=== PATIENT | female | born 1990 | race Caucasian/White ===

== ENCOUNTER → 2023-04-23 13:08 | Outpatient (CLI) | payer OTHER, SELFPAY ==
--- NOTE | 2023-04-23 13:13 | DI.RAD.S_ITS ---
PROCEDURE: XR LUMBAR SPINE 2-3V INDICATIONS: vertebral fracture, left patella fracture TECHNIQUE: 3 views of the lumbar spine were acquired. COMPARISON: None. FINDINGS: Bones: 5 [id number] vertebrae are present. There is normal bony alignment. No vertebral body compression fractures. No suspicious bony lesions. Soft tissues: Overlying bowel gas pattern is normal. No suspicious soft tissue calcifications. IMPRESSION: No acute bony abnormality. No acute or chronic compression fracture noted. Dictated by: Jac Medina M.D. on 04/23/2023 at 14:23 Approved by: Jac Medina M.D. on 04/23/2023 at 14:24
--- NOTE | 2023-04-23 13:13 | DI.RAD.S_ITS ---
PROCEDURE: XR THORACIC SPINE 2V INDICATIONS: vertebral fracture, left patella fracture TECHNIQUE: 3 views of the thoracic spine were acquired. COMPARISON: None. FINDINGS: Bones: There is a mild to moderate T7 compression fracture of uncertain chronicity, possibly acute or subacute. There is a very subtle superior endplate compression fracture of T6. It is also age indeterminate. The bones are diffusely osteopenic. Soft tissues: No paravertebral stripe thickening. IMPRESSION: Age indeterminate compression fractures of T6 and T7. Comment: Consider thoracic spine MRI for further evaluation, to identify fracture acuity. Dictated by: Jac Medina M.D. on 04/23/2023 at 14:24 Approved by: Jac Medina M.D. on 04/23/2023 at 14:26
--- NOTE | 2023-04-23 13:13 | DI.RAD.S_ITS ---
PROCEDURE: XR KNEE LT 3V INDICATIONS: vertebral fracture, left patella fracture TECHNIQUE: 3 views of the knee were acquired. COMPARISON: None. FINDINGS: Bones: No fractures or dislocations. No suspicious bony lesions. Soft tissues: No joint effusion. No suspicious soft tissue calcifications. IMPRESSION: No acute bony abnormality identified. No patellar fracture seen. Dictated by: Jac Medina M.D. on 04/23/2023 at 14:23 Approved by: Jac Medina M.D. on 04/23/2023 at 14:23
== END ==
PROVIDERS: Referring Provider Chiropractor; Visit Provider Chiropractor
DX: S22.059A Unspecified fracture of T5-T6 vertebra, initial encounter for closed fracture (principal); S22.069A Unspecified fracture of T7-T8 vertebra, initial encounter for closed fracture; S82.002A Unspecified fracture of left patella, initial encounter for closed fracture; S32.009A Unspecified fracture of unspecified lumbar vertebra, initial encounter for closed fracture; X58.XXXA Exposure to other specified factors, initial encounter
CPT/HCPCS: 72070; 72100; 73562

== ENCOUNTER 2023-09-28 17:18 | Emergency (ER) | payer OTHER, SELFPAY ==
[2023-09-28 17:25] VITALS: BP 138/75; PULSE 88; RESP 16; TEMP 36.6; O2SAT 96; BMI 36.6
--- NOTE | 2023-09-28 17:51 | ED_ITS ---
HPI - URI/Sore Throat <LUIGI Spence Last Filed: 09/29/23 09:07> General Chief Complaint: Upper Respiratory Symptoms Stated Complaint: per pt poss. Pinkeye, cough, diarrhea Time Seen by Provider: 09/28/23 17:31 Source: patient Mode of arrival: Ambulatory History of Present Illness HPI Narrative: This is a 33-year-old female presents emergency department due to URI symptoms for the last week. States that her daughter tested positive for coronavirus 2 weeks ago but is requesting ?full testing?. She reports some dull aching chest pain affecting her right rib area onset earlier today. Reports some tactile fevers. Reports rhinorrhea, productive cough. Also complaining of ?right eye pink eye?. Related Data Allergies Allergy/AdvReac Type Severity Reaction Status Date / Time azithromycin Allergy Unknown Verified 09/28/23 17:35 Review of Systems <LUIGI Spence Last Filed: 09/29/23 09:07> Review of Systems Narrative: GENERAL: Reports tactile fevers Denies chills, fatigue, malaise, , sweats. HEENT: Reports right eye irritation, Denies sinus pain, ear pain, sore throat, difficulty swallowing, dizziness. RESPIRATORY: Reports productive cough, Denies dyspnea, , wheezing, hemoptysis, . CARDIOVASCULAR: Reports chest pain, denies palpitations, orthopnea, edema, GASTROINTESTINAL: Denies nausea, vomiting, abdominal pain, diarrhea, constipation, melena. : Denies dysuria, frequency, incontinence, hematuria, urinary retention. MUSCULOSKELETAL: denies weakness, joint pain, or bony pain SKIN: Denies rash, skin lesions, or other NEUROLOGIC: Denies weakness, headache, numbness, change in speech, confusion, s eizures, incoordination. PSYCHIATRIC: No concerning psychosocial issues. 12 point review of systems is negative except for those stated above Patient History <LUIGI Spence Last Filed: 09/29/23 09:07> Social History Smoking Status: Former smoker Smoking Status: Former smoker alcohol intake frequency: 0-2 drinks per day Substance Use Type: marijuana Exam <LUIGI Spence Last Filed: 09/29/23 09:07> Narrative Exam Narrative: GENERAL: Well-developed patient, in mild distress. HEAD: Atraumatic. Normocephalic. EYES: Right conjunctiva erythematous. Pupils equal round and reactive. Extraocular motions intact. ENT: Nose without bleeding, purulent drainage. Throat without erythema, tonsillar hypertrophy or exudate. Airway patent. NECK: Trachea midline. Non tender EXTREMITIES: No edema or joint tenderness. NEURO: AOx3. SKIN: No rash or erythema of visible areas CARDIOVASCULAR: Regular rate and rhythm without murmurs, gallops, or rubs. RESPIRATORY: Clear to auscultation. Breath sounds equal bilaterally. No wheezes, rales, or rhonchi. GASTROINTESTINAL: Abdomen soft, non-tender, nondistended. BACK: Nontender without deformity or crepitance. No flank tenderness. Initial Vital Signs Initial Vital Signs: Vital Signs Temperature 97.9 F 09/28/23 17:25 Pulse Rate 88 09/28/23 17:25 Respiratory Rate 16 09/28/23 17:25 Blood Pressure 138/75 09/28/23 17:25 Pulse Oximetry 96 09/28/23 17:25 Oxygen Delivery Method Room Air 09/28/23 17:25 <Joslyn Heaton DO - Last Filed: 10/04/23 07:21> Initial Vital Signs Initial Vital Signs: Vital Signs Temperature 97.9 F 09/28/23 17:25 Pulse Rate 88 09/28/23 17:25 Respiratory Rate 16 09/28/23 17:25 Blood Pressure 138/75 09/28/23 17:25 Pulse Oximetry 96 09/28/23 17:25 Oxygen Delivery Method Room Air 09/28/23 17:25 Course <Roberto Adames PA-C - Last Filed: 09/29/23 09:07> Orders Ordered: ED Orders 09/28/23 18:02 XR chest 2V Stat 09/28/23 18:06 Respiratory Panel (Film Array) Stat Vital Signs Vital signs: Vital Signs - 8 hr 09/28/23 17:25 Temperature 97.9 F Pulse Rate 88 Respiratory Rate 16 Blood Pressure 138/75 Pulse Oximetry 96 Oxygen Delivery Method Room Air <DO Lina Virgen Last Filed: 10/04/23 07:21> Orders Ordered: ED Orders 09/28/23 18:02 XR chest 2V Stat 09/28/23 18:06 Respiratory Panel (Film Array) Stat Vital Signs Vital signs: Vital Signs - 8 hr 09/28/23 17:25 Temperature 97.9 F Pulse Rate 88 Respiratory Rate 16 Blood Pressure 138/75 Pulse Oximetry 96 Oxygen Delivery Method Room Air MDM - URI/Sore Throat <Roberto Adames PA-C - Last Filed: 09/29/23 09:07> Lab Data Labs: Lab Results 09/28/23 Range/Units 18:06 Chlamy pneumoniae PCR Not detected (Not Detect) Adenovirus (PCR) Not detected (Not Detect) B.parapertussis DNA PCR Not detected (Not Detecte) Coronavirus OC43 (PCR) Not detected (Not Detect) Coronavirus HKU1 (PCR) Not detected (Not Detect) Coronavirus 229E (PCR) Not detected (Not Detect) SARS-CoV-2 (PCR) Not detected (Not Detecte) Coronavirus NL63 (PCR) Not detected (Not Detect) Human Metapneumovir PCR Not detected (Not Detect) Influenza Type A (PCR) Not detected (Not Detect) Influenza Type B (PCR) Not detected (Not Detect) M. pneumoniae (PCR) Not detected (Not Detect) Parainfluenza 1 (PCR) Not detected (Not Detect) Parainfluenza 2 (PCR) Not detected (Not Detect) Parainfluenza 3 (PCR) Not detected (Not Detect) Parainfluenza 4 (PCR) Not detected (Not Detect) RSV (PCR) Not detected (Not Detect) Entero/Rhino (PCR) Not detected (Not Detect) Imaging Data Chest x-ray: Radiologist's Impression: [place] [address] XRay Report Signed Patient: Sarah Drummond MR#: [id number] : 1990 Acct:[id number] Age/Sex: 33 / F Date of Service: 09/28/23 Loc: ED Accession Number: [id number] Procedure: XR chest 2V Ordering Provider: Roberto Adames P.A-C PROCEDURE: XR CHEST 2V INDICATIONS: R sided CP and cough TECHNIQUE: 2 views of the chest were acquired. COMPARISON: None. FINDINGS: Surgical changes and devices: None. Lungs and pleura: Lungs are clear. No pleural effusions or pneumothorax. Mediastinum: Mediastinal contours are normal. Heart size is normal. Bones and chest wall: No suspicious bony abnormalities. Soft tissues appear unremarkable. IMPRESSION: Normal two view chest x-ray Approved by: Marky Bravo M.D. on 09/28/2023 at 17:30 MDM Narrative Medical decision making narrative: ED course: This is a 33-year-old female presents to the emergency department due to 7 days of URI symptoms. Also presenting with possible bacterial conjunctivitis, antibiotic eyedrops were prescribed. Respiratory panel came back negative. Suspect some other kind of a viral URI. Chest x-ray negative. Recommended supportive care. CC: Cough Complicating co-morbidities: None Data collected from: Previous notes Medical records reviewed: Patient was not been to this emergency department in the past. No other medical records to review. Differential considered, but not limited to: COVID, influenza, viral URI Exam documented above, pertinent findings include: Erythematous of the right eye conjunctiva, otherwise unremarkable Lab Test results independently reviewed as above. Pertinent findings: Respiratory panel negative Imaging studies independently reviewed: Chest x-ray negative Scores Used: None MIPS Elements: None Consultations: None Treatments: None Re-evaluations: None Discussion: Discussed plan with the patient was comfortable with the plan Diagnosis: Viral URI Disposition: see below, along with detailed discharge instructions that have been reviewed with patient as well as indications for ED re-evaluation and additional outpatient follow up <Joslyn Heaton, - Last Filed: 10/04/23 07:21> Lab Data Labs: Lab Results 09/28/23 Range/Units 18:06 Chlamy pneumoniae PCR Not detected (Not Detect) Adenovirus (PCR) Not detected (Not Detect) B.parapertussis DNA PCR Not detected (Not Detecte) Coronavirus OC43 (PCR) Not detected (Not Detect) Coronavirus HKU1 (PCR) Not detected (Not Detect) Coronavirus 229E (PCR) Not detected (Not Detect) SARS-CoV-2 (PCR) Not detected (Not Detecte) Coronavirus NL63 (PCR) Not detected (Not Detect) Human Metapneumovir PCR Not detected (Not Detect) Influenza Type A (PCR) Not detected (Not Detect) Influenza Type B (PCR) Not detected (Not Detect) M. pneumoniae (PCR) Not detected (Not Detect) Parainfluenza 1 (PCR) Not detected (Not Detect) Parainfluenza 2 (PCR) Not detected (Not Detect) Parainfluenza 3 (PCR) Not detected (Not Detect) Parainfluenza 4 (PCR) Not detected (Not Detect) RSV (PCR) Not detected (Not Detect) Entero/Rhino (PCR) Not detected (Not Detect) Discharge Plan Departure Patient Disposition: Home Clinical Impression: Acute bacterial conjunctivitis Activity Restrictions/Additional Instructions: Thank you for coming to the [facility] Emergency Department today. As we discussed the chest x-ray came back normal. Negative for pneumonia. I will call you with the respiratory panel and screening results when they are available. I sent your medication to [facility] in [place]. Please return to the emergency department if you develop any new or worsening chest pain, shortness of breath, or any other concerning signs or symptoms. I hope you feel better soon. Please follow up with your primary care provider within a week if your symptoms continue. If you do not have a primary care provider please contact the [facility] Resource line at [phone]. They will ask some questions about your medical history and help you get set up with a provider in the community. Stand Alone Forms: Patient Portal/API ED Sign-out <Joslyn Heaton, - Last Filed: 10/04/23 07:21> Cosign ED Attending Alex Attestation: I was available for consultation.
--- NOTE | 2023-09-28 18:02 | DI.RAD.S_ITS ---
PROCEDURE: XR CHEST 2V INDICATIONS: R sided CP and cough TECHNIQUE: 2 views of the chest were acquired. COMPARISON: None. FINDINGS: Surgical changes and devices: None. Lungs and pleura: Lungs are clear. No pleural effusions or pneumothorax. Mediastinum: Mediastinal contours are normal. Heart size is normal. Bones and chest wall: No suspicious bony abnormalities. Soft tissues appear unremarkable. IMPRESSION: Normal two view chest x-ray Approved by: Marky Bravo M.D. on 09/28/2023 at 17:30
[2023-09-28 19:01] LABS: Adenovirus Not Detected (Not Detect); B. parapertussis Not Detected (Not Detecte); Bordetella pertussis Not Detected (Not Detect); Chlamydophila pneumoniae Not Detected (Not Detect); Coronavirus 229E Not Detected (Not Detect); Coronavirus HKU1 Not Detected (Not Detect); Coronavirus NL 63 Not Detected (Not Detect); Coronavirus OC43 Not Detected (Not Detect); Human Metapneumovirus Not Detected (Not Detect); Human Rhinovirus/Enterovirus Not Detected (Not Detect); Influenza A Not Detected (Not Detect); Influenza B Not Detected (Not Detect); Mycoplasma pneumoniae Not Detected (Not Detect); Parainfluenza Virus 1 Not Detected (Not Detect); Parainfluenza Virus 2 Not Detected (Not Detect); Parainfluenza Virus 3 Not Detected (Not Detect); Parainfluenza Virus 4 Not Detected (Not Detect); Respiratory Syncytial Virus Not Detected (Not Detect); SARS- CoV-2 Not Detected (Not Detecte)
== END 2023-09-28 19:14 | disposition home or self-care (01) ==
PROVIDERS: Emergency Provider Physician Assistant Medical
DX: H10.31 Unspecified acute conjunctivitis, right eye (principal); R07.9 Chest pain, unspecified
CPT/HCPCS: 71046; 87633; 99283

== ENCOUNTER 2023-11-11 11:21 | Emergency (ER) | payer OTHER, SELFPAY ==
[2023-11-11 11:53] VITALS: BP 128/74; PULSE 80; RESP 17; TEMP 36.1; O2SAT 100; BMI 36.3
[2023-11-11] MEDS: KETOROLAC 30 MG/ML VIAL IM (13:50)
--- NOTE | 2023-11-11 13:50 | ED_ITS ---
HPI - Abdominal Pain <Margarita Rosen PA-C - Last Filed: 11/11/23 13:55> General Chief Complaint: Abdominal Pain Stated Complaint: Pt says she might have a hernia Time Seen by Provider: 11/11/23 12:53 Source: patient Mode of arrival: Ambulatory History of Present Illness HPI narrative: 33-year-old female presents to the ED with left-sided abdominal pain for 3 days. Patient states that 3 days ago, she was straining with her arms and torso as she was applying wrote to her shower. Patient states that it took a tremendous amount of effort and that she could have pulled a muscle on her left side. Patient states that the pain is aggravated with movement, coughing. Patient denies fever, chills, chest pain, shortness of breath, nausea, vomiting, dysuria. Patient reports normal bowel movements. Patient does endorse some recent constipation. Related Data Previous Rx's Medication Instructions Recorded cyclobenzaprine 10 mg tablet 10 mg PO TID PRN muscle spasm #14 11/11/23 tabs Allergies Allergy/AdvReac Type Severity Reaction Status Date / Time azithromycin AdvReac Unknown Rash Verified 11/11/23 11:53 Review of Systems <Margarita Rosen PA-C - Last Filed: 11/11/23 13:55> Constitutional Constitutional: Denies chills, Denies fatigue, Denies fever(s), Denies frequent falls, Denies lethargy and Denies weakness Eyes Eyes: Denies change in vision, Denies eye discharge, Denies irritation and Denies loss of vision ENT Ears, Nose, Mouth, and Throat: Denies change in voice, Denies dizziness, Denies neck pain, Denies sore throat and Denies throat swelling Cardiovascular Cardiovascular: Denies chest pain, Denies irregular heart rhythm, Denies lightheadedness, Denies palpitations, Denies dyspnea, Denies dyspnea on exertion and Denies orthopnea Respiratory Respiratory: Denies cough, Denies dyspnea, Denies dyspnea on exertion and Denies wheezing Gastrointestinal Gastrointestinal: Reports abdominal pain, Denies change in bowel habits, Denies diarrhea, Denies nausea and Denies vomiting Musculoskeletal Musculoskeletal: Denies neck pain and Denies numbness Integumentary/Breasts Skin/Breast: Denies pruritus, Denies erythema, Denies rash and Denies wounds Neurologic Neurologic: Denies behavioral changes, Denies confusion, Denies dizziness, Denies frequent falls, Denies loss of vision, Denies numbness and Denies weakness Psychiatric Psychiatric: Denies anxiety, Denies behavioral changes, Denies confusion, Denies depression, Denies homicidal ideation and Denies suicidal ideation Endocrine Endocrine: Denies fatigue, Denies flushing and Denies palpitations Hematologic/Lymphatic Hematologic/Lymphatic: Denies easy bruising Allergic/Immunologic Allergic/Immunologic: Denies urticaria, Denies throat swelling and Denies wheezing Patient History <Margarita Rosen PA-C - Last Filed: 11/11/23 13:55> Social History Smoking Status: Former smoker Smoking Status: Former smoker alcohol intake frequency: 0-2 drinks per day Substance Use Type: marijuana Exam <Margarita Rosen PA-C - Last Filed: 11/11/23 13:55> Narrative Exam Narrative: Const General:?cooperative, healthy appearing and comfortable HENMT Head:?normal to inspection Ears:?hearing grossly normal bilaterally Nose:?external nose normal Face and sinus:?normal facial exam and sinuses nontender Mouth:?oral mucosae normal Throat:?posterior oropharynx normal Eyes General:?appearance normal, both eyes and all related structures Neck Neck:?normal visual inspection and no lymphadenopathy noted Resp Effort & Inspection:?normal respiratory effort Auscultation:?clear to auscultation bilaterally Cardio Rate:?regular rate Rhythm:?regular rhythm GI Abdomen is soft, nondistended. There is mild, generalized tenderness to palpat ion. No CVA tenderness. Neuro General:?patient alert, patient awake and patient oriented x3 Initial Vital Signs Initial Vital Signs: Vital Signs Temperature 97.0 F L 11/11/23 11:53 Pulse Rate 80 11/11/23 11:53 Respiratory Rate 17 11/11/23 11:53 Blood Pressure 128/74 11/11/23 11:53 Pulse Oximetry 100 11/11/23 11:53 Oxygen Delivery Method Room Air 11/11/23 11:53 <Bertha Castro MD - Last Filed: 11/11/23 14:39> Initial Vital Signs Initial Vital Signs: Vital Signs Temperature 97.0 F L 11/11/23 11:53 Pulse Rate 80 11/11/23 11:53 Respiratory Rate 17 11/11/23 11:53 Blood Pressure 128/74 11/11/23 11:53 Pulse Oximetry 100 11/11/23 11:53 Oxygen Delivery Method Room Air 11/11/23 11:53 Course <Margarita Rosen PA-C - Last Filed: 11/11/23 13:55> Orders Ordered: Discontinued Medications Ketorolac Tromethamine (Ketorolac 30 Mg/Ml Vial) 30 mg IM NOW ONE Stop: 11/11/23 13:39 Last Admin: 11/11/23 13:50 Dose: 30 mg Documented By: RAGHU Vital Signs Vital signs: Vital Signs - 8 hr 11/11/23 11:53 11/11/23 13:59 Temperature 97.0 F L Pulse Rate 80 77 Respiratory Rate 17 17 Blood Pressure 128/74 128/70 Pulse Oximetry 100 100 Oxygen Delivery Method Room Air Room Air <Bertha Castro MD - Last Filed: 11/11/23 14:39> Orders Ordered: Discontinued Medications Ketorolac Tromethamine (Ketorolac 30 Mg/Ml Vial) 30 mg IM NOW ONE Stop: 11/11/23 13:39 Last Admin: 11/11/23 13:50 Dose: 30 mg Documented By: RAGHU Vital Signs Vital signs: Vital Signs - 8 hr 11/11/23 11:53 11/11/23 13:59 Temperature 97.0 F L Pulse Rate 80 77 Respiratory Rate 17 17 Blood Pressure 128/74 128/70 Pulse Oximetry 100 100 Oxygen Delivery Method Room Air Room Air MDM - Abdominal Pain <Margarita Rosen PA-C - Last Filed: 11/11/23 13:55> MDM Narrative Medical decision making narrative: 33-year-old female presents to the ED with left-sided abdominal pain for 3 days. There is some mild tenderness to palpation in the abdomen which is generalized. Concern for musculoskeletal sprain/strain versus intra-abdominal pathology versus other. History is most consistent with a musculoskeletal etiology. Discussed the options of and abdominal workup with imaging versus trialing Toradol and Flexeril. Patient states that given that she is time constraints in picking up her kids, she will try the Toradol and Flexeril, monitor the abdominal symptoms and return to the ED if she has worsening symptoms. ED return precautions were discussed in detail with patient. She verbalized understanding. Medical records reviewed: Yes Discharge Plan Departure Patient Disposition: Home Clinical Impression: Abdominal pain Instructions: DI for Abdominal Muscle Strain Activity Restrictions/Additional Instructions: You were evaluated in the ED today for left-sided abdominal pain. Your symptoms are most consistent with a abdominal muscle strain. You were given a shot of Toradol in the ED and are being prescribed a muscle relaxant Flexeril to take at home. You may also continue to take 600 mg of ibuprofen with food for pain. Please monitor your symptoms and return to the ED if you have worsening symptoms. Prescriptions: New cyclobenzaprine 10 mg tablet 10 mg PO TID PRN (Reason: muscle spasm) Qty: 14 0RF Referrals: Provider,De PEDERSEN [Primary Care Provider] - Stand Alone Forms: Patient Portal/API ED Sign-out <Bertha Castro MD - Last Filed: 11/11/23 14:39> Cosign ED Attending Alex Attestation: I was immediately available in the department for consultation throughout this patient's visit. Bertha Castro MD
[2023-11-11 13:59] VITALS: BP 128/70; PULSE 77; RESP 17; O2SAT 100
== END 2023-11-11 14:01 | disposition home or self-care (01) ==
PROVIDERS: Emergency Provider Student in an Organized Health Care Education/Training Program
DX: R10.84 Generalized abdominal pain (principal)
CPT/HCPCS: 96372; 99283; J1885

== ENCOUNTER 2024-05-26 18:51 | Emergency (ER) | payer OTHER, SELFPAY ==
[2024-05-26 18:55] VITALS: BP 122/81; PULSE 105; RESP 16; TEMP 37.2; O2SAT 95; BMI 36.8
[2024-05-26 19:37] LABS: Strep Grp A by PCR Rapid Negative (Negative)
--- NOTE | 2024-05-26 20:23 | ED.URI ---
HPI - URI/Sore Throat General Chief Complaint: Upper Respiratory Symptoms Stated Complaint: throat pain Time Seen by Provider: 05/26/24 19:29 Source: patient Mode of arrival: Ambulatory History of Present Illness HPI Narrative: 33-year-old female with no significant past medical history presents with 3 days of sore throat, intermittent nonproductive cough. Has been using [id number] cough and cold medications without significant relief. Reports pain with swallowing and swollen tonsils. Denies fevers. Related Data Previous Rx's Medication Instructions Recorded cyclobenzaprine 10 mg tablet 10 mg PO TID PRN muscle spasm #14 11/11/23 tabs dexamethasone 4 mg tablet 8 mg (2 x 4 mg) PO .once #2 tabs 05/26/24 lidocaine HCl 2 % mucosal solution 1 applic mucous membrane BID PRN 05/26/24 (Lidocaine Viscous) pain #100 mL Allergies Allergy/AdvReac Type Severity Reaction Status Date / Time azithromycin AdvReac Unknown Rash Verified 11/11/23 11:53 Patient History Social History Smoking Status: Former smoker Smoking Status: Former smoker alcohol intake frequency: 0-2 drinks per day Substance Use Type: marijuana Exam Initial Vital Signs Initial Vital Signs: Vital Signs Temperature 98.9 F 05/26/24 18:55 Pulse Rate 105 H 05/26/24 18:55 Respiratory Rate 16 05/26/24 18:55 Blood Pressure 122/81 05/26/24 18:55 Pulse Oximetry 95 05/26/24 18:55 Oxygen Delivery Method Room Air 05/26/24 18:55 Const: Awake, alert, no acute distress, nontoxic appearing HEENT: Ears normal, nose normal, 4+ tonsillar swelling, minimal erythema, no abscess, airway patent, mucous membranes moist Skin: Warm, Dry, intact, no rashes Neuro: AO x3, CN II-XII grossly intact, moves all extremities Course Orders Ordered: Discontinued Medications Dexamethasone (Dexamethasone 10 Mg/Ml Vial) 10 mg PO NOW ONE Stop: 05/26/24 20:23 Last Admin: 05/26/24 20:29 Dose: 10 mg Documented By: LEONCIO Vital Signs Vital signs: Vital Signs - 8 hr 05/26/24 18:55 Temperature 98.9 F Pulse Rate 105 H Respiratory Rate 16 Blood Pressure 122/81 Pulse Oximetry 95 Oxygen Delivery Method Room Air MDM - URI/Sore Throat Differential Diagnosis Differential diagnosis: Likely upper respiratory infection, sinusitis and viral infection Lab Data Labs: Lab Results 05/26/24 Range/Units 18:50 Group A Strep (PCR) Negative (Negative) MDM Narrative Medical decision making narrative: Likely viral pharyngitis. Strep swab negative. There is tonsillar swelling present, however airway is patent, voices normal, tolerating secretions, no distress. Patient given Decadron for symptoms. Counseled use of Tylenol and ibuprofen, saltwater gargles, honey and tea for comfort. Additional dose of Decadron given if patient continues to have tonsillar swelling in the next several days. Discharge Plan Departure Patient Disposition: Home Clinical Impression: Pharyngitis Instructions: DI for Pharyngitis/Tonsillopharyngitis -- Adult Activity Restrictions/Additional Instructions: Your strep swab is negative. It has been sent for culture. If you do end up needing antibiotics someone will call and prescribe this for you, however your tonsils appearance seem more consistent with a viral illness. Take Tylenol and ibuprofen for pain. Use saltwater gargles as needed for throat comfort. Tea with honey is also soothing for the throat. Prescriptions: New dexamethasone 4 mg tablet 8 mg PO .once Qty: 2 0RF Rx Instructions: can take on 05/28/24 if still experiencing tonsillar swelling lidocaine HCl [Lidocaine Viscous] 2 % solution 1 applic mucous membrane BID PRN (Reason: pain) Qty: 100 0RF No Action cyclobenzaprine 10 mg tablet 10 mg PO TID PRN (Reason: muscle spasm) Qty: 14 0RF Referrals: ProviderDe [Primary Care Provider] - Stand Alone Forms: Patient Portal/API/Survey
[2024-05-26] MEDS: DEXAMETHASONE 10 MG/ML VIAL PO (20:29)
[2024-05-26 20:32] VITALS: BP 134/69; PULSE 91; RESP 21; TEMP 37.1; O2SAT 98
== END 2024-05-26 20:32 | disposition home or self-care (01) ==
PROVIDERS: Emergency Provider Emergency Medicine
DX: J02.9 Acute pharyngitis, unspecified (principal)
CPT/HCPCS: 87651; 99283; J1100

== ENCOUNTER 2024-11-23 09:17 | Emergency (ER) | payer OTHER, SELFPAY ==
[2024-11-23] VITALS (10 sets, daily range): BP systolic 124–138; BP diastolic 82–90; PULSE 67–83; O2SAT 97–99
[2024-11-23 12:19] LABS: Alanine Aminotransferase 27 IU/L (<35); Albumin 3.9 g/dL (3.5-5.0); Albumin Globulin Ratio 1.3 (1.0-2.8); Alkaline Phosphatase 56 U/L (38-126); Aspartate Aminotransferase 29 IU/L (14-36); BUN Creatinine Ratio 17.9 (6-22); Bilirubin Total 0.5 mg/dL (0.2-1.3); Blood Urea Nitrogen 12 mg/dL (7-17); Calcium 8.8 mg/dL (8.4-10.2); Carbon Dioxide 22 mmol/L (22-32); Chloride 106 mmol/L (98-107); Estimated Glomerular Filt Rate > 60 mL/min (>60); Glucose 90 mg/dL (70-99); HEMOLYSIS 42 (0-50); Lipase 57 U/L (23-300); Potassium 4.4 mmol/L (3.4-5.1); Sodium 137 mmol/L (137-145); Total Protein 6.9 g/dL (6.3-8.2)
[2024-11-23 12:27] LABS: Add Manual Diff / Slide Review NO; Basophils Absolute Auto 0 /uL (0-100); Basophils Percent Auto 0.4 % (0-2); Eosinophils Absolute Auto 600 /uL (0-450); Eosinophils Percent Auto 8.4 % (2-4); Hematocrit 36.9 % (36-46); Hemoglobin 12.2 g/dL (12.0-16.0); Lymphocytes Absolute Auto 2300 /uL (1100-4500); Lymphocytes Percent Auto 30.4 % (25-40); Mean Corpuscular Hemoglobin 28.5 PG (26-34); Mean Corpuscular Volume 86.3 fL (80-100); Monocytes Absolute Auto 500 /uL (0-900); Neutrophils Absolute Auto 4000 /uL (1500-7000); Neutrophils Percent Auto 53.8 % (50-75); Platelet Count 313 X10^3/uL (150-400); Red Blood Cell Count 4.27 X10^6/uL (4.0-5.2); White Blood Cell Count 7.5 X10^3/uL (4.5-11.0)
--- NOTE | 2024-11-23 13:16 | ED.ABDPAIN ---
HPI - Abdominal Pain General Chief Complaint: Abdominal Pain Stated Complaint: right sided pain from back to abd Time Seen by Provider: 11/23/24 13:04 Source: patient Mode of arrival: Ambulatory Limitations: no limitations History of Present Illness HPI narrative: This is a 34-year-old female patient with a history of obesity and probable anxiety who presents with right flank/back pain radiating to the right upper quadrant and epigastrium since 6:00 a.m. this morning with nausea but no vomiting, diarrhea or fever. No dysuria. She did have decreased appetite. Previous history of appendectomy and section. At the time I saw the patient she had been here 3-1/2 hours and is feeling better from the time she presented. MD complaint: abdominal pain and flank pain Onset (ago): hour(s) (7) Location: RUQ Severity scale (1-10): 5 Quality: aching Relieving factors: nothing Exacerbating factors: nothing Associated symptoms: denies other symptoms Related Data Patient : No Previous Rx's Medication Instructions Recorded cyclobenzaprine 10 mg tablet 10 mg PO TID PRN muscle spasm #14 11/11/23 tabs dexamethasone 4 mg tablet 8 mg (2 x 4 mg) PO .once #2 tabs 05/26/24 lidocaine HCl 2 % mucosal solution 1 applic mucous membrane BID PRN 05/26/24 (Lidocaine Viscous) pain #100 mL Allergies Allergy/AdvReac Type Severity Reaction Status Date / Time azithromycin AdvReac Unknown Rash Verified 11/11/23 11:53 Review of Systems Review of Systems ROS Unobtainable: All systems reviewed & are unremarkable except as noted in HPI and below Constitutional Constitutional: Reports as per HPI, Reports system reviewed and no additional complaints, except as documented, Denies body ache(s), Denies chills and Denies fever(s) Cardiovascular Cardiovascular: Denies chest pain and Denies dyspnea Respiratory Respiratory: Denies chest congestion, Denies cough and Denies dyspnea Gastrointestinal Gastrointestinal: Reports as per HPI Genitourinary Genitourinary: Reports system reviewed and no additional complaints, except as documented, Reports as per HPI, Denies hematuria and Denies dysuria Musculoskeletal Musculoskeletal: Reports system reviewed and no additional complaints, except as documented Psychiatric Psychiatric: Reports system reviewed and no additional complaints, except as documented and Reports anxiety Patient History alcohol intake frequency: 0-2 drinks per day Substance Use Type [#R]: marijuana Exam Initial Vital Signs Initial Vital Signs: Vital Signs Pulse Rate 83 11/23/24 09:40 Pulse Oximetry 98 11/23/24 09:40 Const General: cooperative, healthy appearing and No acute distress Nutritional Appearance: obese HENMT Head: normal to inspection Eyes General: Yes appearance normal, both eyes and all related structures Resp Effort & Inspection: normal respiratory effort and able to speak in complete sentences Auscultation: clear to auscultation bilaterally GI Inspection: non-distended and obesity Palpation: soft and tender (Mild tenderness in the right upper quadrant and epigastrium but no rebound ) Auscultation: normal bowel sounds Other: No rebound or guarding Back/Spine/Pelvis Other: Mild right sided parathoracic and CVA tenderness to palpation but no CVA tenderness to percussion. Range of motion intact. Skin General: no rashes or lesions noted Neuro General: patient alert, patient awake and patient oriented x3 Course Course Course Narrative: Patient was sleeping when I came in the room and had been here over 3 hours and was feeling better compared to when she came in. Orders Ordered: ED Orders 11/23/24 12:00 Complete Blood Count AUTO DIFF Stat Comprehensive Metabolic Panel Stat Lipase Stat Discontinued Medications Ondansetron HCl (Ondansetron 4 Mg/2 Ml Inj) 4 mg IV NOW PRN PRN Reason: Nausea And Vomiting Ondansetron HCl (Ondansetron 4 Mg Odt) 4 mg PO NOW PRN PRN Reason: Nausea And Vomiting Vital Signs Vital signs: Vital Signs - 8 hr 11/23/24 09:40 11/23/24 09:41 11/23/24 09:41 Pulse Rate 83 79 Blood Pressure 138/90 Pulse Oximetry 98 98 11/23/24 10:00 11/23/24 10:00 11/23/24 10:30 Pulse Rate 75 Blood Pressure 127/82 132/89 Pulse Oximetry 98 11/23/24 10:30 11/23/24 11:00 11/23/24 11:00 Pulse Rate 72 70 Blood Pressure 124/89 Pulse Oximetry 98 98 11/23/24 11:30 11/23/24 12:00 11/23/24 12:30 Pulse Rate 69 67 67 Blood Pressure Pulse Oximetry 99 99 99 11/23/24 13:00 11/23/24 13:30 Pulse Rate 73 71 Blood Pressure Pulse Oximetry 97 98 MDM - Abdominal Pain Differential Diagnosis Differential diagnosis: Likely abdominal pain, calculus of kidney, constipation, diverticulitis, gastroenteritis and small bowel obstruction Condition is:: Improved Condition is at treatment goal?: Yes Medical Records Attestation: I reviewed the patient's medical records. Lab Data Attestation: I reviewed the patient's lab results. Lab results narrative: Unremarkable CBC, CMP, urinalysis and urine test 11/23/24 12:00 11/23/24 12:00 Labs: Lab Results 11/23/24 Range/Units 12:00 WBC 7.5 (4.5-11.0) X10^3/uL RBC 4.27 (4.0-5.2) X10^6/uL Hgb 12.2 (12.0-16.0) g/dL Hct 36.9 (36-46) % MCV 86.3 (80-100) fL MCH 28.5 (26-34) PG MCHC 33.0 (30-36) % RDW 14.0 (11.6-14.8) % Plt Count 313 (150-400) X10^3/uL Neut % (Auto) 53.8 (50-75) % Lymph % (Auto) 30.4 (25-40) % [place] % (Auto) 7.0 (3-14) % Eos % (Auto) 8.4 H (2-4) % Baso % (Auto) 0.4 (0-2) % Neut # (Auto) 4000 (2031-7944) /uL Lymph # (Auto) 2300 (0088-4531) /uL [place] # (Auto) 500 (0-900) /uL Eos # (Auto) 600 H (0-450) /uL Baso # (Auto) 0 (0-100) /uL Sodium 137 (137-145) mmol/L Potassium 4.4 (3.4-5.1) mmol/L Chloride 106 (98-107) mmol/L Carbon Dioxide 22 (22-32) mmol/L BUN 12 (7-17) mg/dL Creatinine 0.67 (0.52-1.04) mg/dL Estimated GFR > 60 (>60) mL/min BUN/Creatinine Ratio 17.9 (6-22) Glucose 90 (70-99) mg/dL Calcium 8.8 (8.4-10.2) mg/dL Total Bilirubin 0.5 (0.2-1.3) mg/dL AST 29 (14-36) IU/L ALT 27 (<35) IU/L Alkaline Phosphatase 56 (38-126) U/L Total Protein 6.9 (6.3-8.2) g/dL Albumin 3.9 (3.5-5.0) g/dL Globulin 3.0 (1.7-4.1) g/dL Albumin/Globulin Ratio 1.3 (1.0-2.8) Lipase 57 (23-300) U/L Point of care testing: Point of Care Testing Test Results Negative Urine Dip Bedside Urine Glucose Negative Bedside Urine Bilirubin - Negative Bedside Urine Ketone - Negative Urine Specific [place] 1.025 Bedside Urine Occult Blood - Negative Bedside Urine pH 6.0 Bedside Urine Protein - Negative Bedside Urine Urobilinogen - Negative Bedside Urine Nitrite - Negative Bedside Urine Leukocytes - Negative Esterase MDM Narrative Medical decision making narrative: Patient has had [id number] right flank pain radiating towards the right upper quadrant epigastrium which is improved while resting in the ER. She was sleeping when I came in the room. Physical exam reveals mild symptoms and no rebound or guarding or surgical abdomen/peritoneal signs. Lab work is also reassuring with unremarkable CBC, CMP and urinalysis/urine test. Possible irritable bowel, trapped gas which is resolving. Less likely as biliary colic that is not showing any lab abnormalities. Plan is patient will be discharged home with instructions to follow a low-fat/bland diet with a trial of famotidine or omeprazole for possible gastritis. Follow up closely with primary care for further assessment. Return to the ER if worse Discharge Plan Departure Patient Disposition: Home Clinical Impression: Abdominal pain, Right flank pain Instructions: DI for Abdominal Pain-Adult, DI for Biliary Colic Activity Restrictions/Additional Instructions: Follow a bland low-fat diet for now. May try famotidine or omeprazole [id number] for possible gastritis. Follow-up closely with your provider for further assessment. May need ultrasound or gallbladder nuclear scan if symptoms persist. Return to the ER if worse. Prescriptions: No Action cyclobenzaprine 10 mg tablet 10 mg PO TID PRN (Reason: muscle spasm) Qty: 14 0RF dexamethasone 4 mg tablet 8 mg PO .once Qty: 2 0RF Rx Instructions: can take on 05/28/24 if still experiencing tonsillar swelling lidocaine HCl [Lidocaine Viscous] 2 % solution 1 applic mucous membrane BID PRN (Reason: pain) Qty: 100 0RF Referrals: De Stanley [Primary Care Provider] - Stand Alone Forms: Patient Portal/API/Survey
== END 2024-11-23 13:49 | disposition home or self-care (01) ==
PROVIDERS: Student in an Organized Health Care Education/Training Program; Emergency Provider Emergency Medicine
DX: R10.11 Right upper quadrant pain (principal); R10.13 Epigastric pain; R11.0 Nausea
CPT/HCPCS: 36415; 80053; 81003; 81025; 83690; 85025; 96374; 99282; 99284